=== PATIENT | male | born 1955 ===

== ENCOUNTER 2017-10-28 11:39 | Outpatient (CLI) | payer OTHER ==
[~2017-10-28] VITALS: Ht 175.3 cm; Wt 85.7 kg
== END 2017-10-28 17:22 | disposition home or self-care (01) ==
LOC: OFIC 805 11:39
DX: K21.9 Gastro-esophageal reflux disease without esophagitis (principal); R09.82 Postnasal drip; R09.81 Nasal congestion; R05 Cough

== ENCOUNTER 2017-12-27 08:51 | Outpatient (CLI) | payer OTHER ==
[~2017-12-27] VITALS: Ht 152.4 cm; Wt 85.7 kg
== END 2017-12-27 09:05 | disposition home or self-care (01) ==
LOC: OFIC 805 08:51
DX: R05 Cough (principal); R09.81 Nasal congestion; R09.82 Postnasal drip

== ENCOUNTER 2018-04-13 11:47 | Outpatient (CLI) | payer OTHER ==
[~2018-04-13] VITALS: Ht 152.4 cm; Wt 83.9 kg
== END 2018-04-13 12:00 | disposition home or self-care (01) ==
LOC: OFIC 805 11:47
DX: R09.81 Nasal congestion (principal); R09.82 Postnasal drip; J34.2 Deviated nasal septum; J30.89 Other allergic rhinitis

== ENCOUNTER 2019-05-25 12:15 | Outpatient (CLI) | payer OTHER ==
[~2019-05-25] VITALS: Ht 152.4 cm; Wt 83.9 kg
== END 2019-05-25 16:15 | disposition home or self-care (01) ==
LOC: OFIC 805 12:15
DX: J30.89 Other allergic rhinitis (principal); J34.2 Deviated nasal septum; R09.82 Postnasal drip; R09.81 Nasal congestion; R05 Cough; K21.0 Gastro-esophageal reflux disease with esophagitis

== ENCOUNTER 2020-12-25 07:23 | Day surgery (SDC) | payer OTHER ==
[~2020-12-25 07:23] MED LIST: METFORMIN HCL500 M3 PO; SYNTHROID125 MCG PO
== END 2020-12-25 19:15 | disposition home or self-care (01) ==
LOC: CIR.AMB 07:23
PROVIDERS: ATTEND Otolaryngology
DX: J34.2 Deviated nasal septum (principal); J34.3 Hypertrophy of nasal turbinates; J34.89 Other specified disorders of nose and nasal sinuses